=== PATIENT | female | born 1975 | race African-American/Black ===

== ENCOUNTER → 2016-11-18 10:21 | Outpatient (CLI) | payer BC | END | disposition home or self-care (01) | LOC: D.RAD 10:21 | DX: M54.42 Lumbago with sciatica, left side (principal) ==

== ENCOUNTER 2019-06-27 06:00 | Day surgery (SDC) | payer OTHER ==
[~2019-06-27] VITALS: Ht 162.6 cm; Wt 145.5 kg
[2019-06-27 06:39] LABS: MCH 30.1 pg (26.0-34.0); MCHC 33.3 g/dL (31.0-37.0); MCV 90.2 fL (80.0-100.0); MEAN PLATELET VOLUME 8.8 fL (7.4-10.4); RBC 3.99 10x6/uL (4.00-5.40); RDW 13.4 % (11.5-14.5); WBC 7.8 10x3/uL (4.8-10.8)
[2019-06-27 07:04] LABS: CALC OSMOLALITY 285 mosm/kg (275-300); CALCIUM 8.8 mg/dL (8.5-10.1); CARBON DIOXIDE 31.3 mmol/L (21.0-32.0); CHLORIDE - SERUM 103 mmol/L (98-107); CREATININE - SERUM 0.6 mg/dL (0.6-1.3); GLUCOSE 129 mg/dL (74-106); POTASSIUM - SERUM 3.3 mmol/L (3.5-5.1); SODIUM 143 mmol/L (136-145); UREA NITROGEN 9 mg/dL (7-18); eGFR NON AFRICAN AMERICAN > 90 mL/min (90-120)
[2019-06-27] MEDS ORDERED: HYDROCODON-ACE1 EA10 PO (07:07)
[2019-06-27] MEDS ORDERED: K-DUR20 MEQ PO (07:08)
[2019-06-27] MEDS ORDERED: CHOLESTYRAMINE (07:08)
[2019-06-27] MEDS ORDERED: MAG-OXIDE400 MG (07:08)
[2019-06-27] MEDS ORDERED: CHLORTHALIDONE25 MG PO (07:10)
[2019-06-27] MEDS ORDERED: TRINTELLIX20 MG PO (07:10)
[2019-06-27] MEDS ORDERED: GLUCOPHAGE500 MG PO (07:10)
[2019-06-27 07:31] VITALS: BP 128/75; Ht 162.6 cm; Wt 145.5 kg
--- NOTE | 2019-06-27 09:54 | OP ---
PATIENT NAME: FREEDOM ORTEGA MEDICAL RECORD: [id number] :79 LOCATION:[facility] ADMISSION DATE: SURGEON: JUNG RAMIREZ DO DATE OF OPERATION: 06/27/2019 PROCEDURE: EGD with biopsies. INDICATIONS FOR PROCEDURE: Upper abdominal pain, nausea and vomiting, generalized abdominal tenderness, diarrhea. SCOPE: Olympus video gastroscope. MEDICATIONS: Propofol 100 mg IV per anesthesia. ESTIMATED BLOOD LOSS: Minimal. COMPLICATIONS: None. FINDINGS: Informed consent was given. The patient was made comfortable with the above medication. After reaching an adequate level of sedation by slow IV push, the patient was placed in the left side. The endoscope was advanced under direct visualization through the mouth to the second portion of the duodenum with ease. The entire esophagus appeared normal. At the GE junction, there was evidence of LA class A reflux-induced esophagitis. The endoscope was advanced beyond the GE junction in the stomach and retroflexed to view the cardia, where a small sliding hiatal hernia was present. Throughout the entire stomach, there was erythema and granularity consistent with gastritis of moderate severity. Random forceps biopsies were taken from the antrum to submit for histopathology and to rule out the presence of H. pylori. The endoscope was advanced beyond the pylorus into the duodenum, which appeared normal to the second portion. Random cold forceps biopsies were taken to submit for histopathology in light of the patient's ongoing chronic diarrhea. The endoscope was withdrawn from the patient. The patient tolerated the procedure well and there were no complications. IMPRESSION: 1. LA class A reflux-induced esophagitis. 2. Small sliding hiatal hernia. 3. Gastritis. PLAN AND RECOMMENDATIONS: 1. Discharge home when recovery parameters are met. 2. Follow up biopsy specimen results. 3. GERD diet and reflux precautions. 4. Omeprazole 40 mg daily times 60 days followed by Pepcid 40 mg daily p.r.n. for reflux and gastritis changes. 5. Follow up in GI clinic in 4-6 weeks to make sure symptoms are improving. TRANSINT:[id number] Voice Confirmation ID: [id number] DOCUMENT ID: [id number] OPERATIVE REPORT [id number] FREEDOM ORTEGA JUNG RAMIREZ DO at 0954 CC: [id number] DICTATION DATE: 06/27/19827 OPERATING COST CLERK: 06/27/1901 DEP SDC 06/27/19 [facility] [address] [place] [address]
== END 2019-06-27 09:26 | disposition home or self-care (01) ==
LOC: D.OPS 06:00
PROVIDERS: Anesthesiology; ATTEND Internal Medicine Gastroenterology
DX: K21.0 Gastro-esophageal reflux disease with esophagitis (principal); K44.9 Diaphragmatic hernia without obstruction or gangrene; K29.70 Gastritis, unspecified, without bleeding

== ENCOUNTER 2019-09-03 10:32 | Day surgery (SDC) | payer OTHER ==
[~2019-09-03] VITALS: Ht 162.6 cm; Wt 145.5 kg
--- NOTE | ~2019-09-03 | OP ---
PATIENT NAME: FREEDOM ORTEGA MEDICAL RECORD: [id number] :79 LOCATION:D.[facility] ADMISSION DATE: SURGEON: JUNG RAMIREZ DO DATE OF OPERATION: 09/03/2019 PROCEDURE: Colonoscopy with biopsies. INDICATIONS FOR PROCEDURE: Diarrhea and generalized abdominal tenderness. SCOPE: OneTouch video pediatric colonoscope. MEDICATIONS: Propofol 580 mg IV per anesthesia. WITHDRAWAL TIME: 11 minutes. ESTIMATED BLOOD LOSS: Minimal. COMPLICATIONS: None. FINDINGS: Informed consent was given. The patient was made comfortable with the above medication. After reaching an adequate level of sedation by slow IV push, the patient was placed on her left side. A digital rectal examination was performed and was normal. The endoscope was then advanced under direct visualization through the rectum to the cecum, confirmed by the presence of the appendiceal orifice and ileocecal valve. The endoscope was slowly withdrawn and mucosa was carefully examined. The prep quality was fair. There were no polyps or masses visualized on today's examination. There were no diverticula seen. Retroflexion was performed in the rectum with visualization of grade I internal hemorrhoids. The patient had previously had an xTAG which was negative, so no stool studies were collected today. Random biopsies were taken with cold forceps to submit for histopathology and to rule out the presence of microscopic colitis. The endoscope was withdrawn from the patient. The patient tolerated the procedure well and there were no complications. IMPRESSION: 1. Grade I internal hemorrhoids without bleeding. 2. Otherwise, normal colonoscopy to cecum. PLAN AND RECOMMENDATIONS: 1. Discharge home when recovery parameters are met. 2. Follow up biopsy specimen results. 3. High fiber diet. 4. Continue current medications. 5. Restart cholestyramine 4 grams powder mixed with liquid twice daily for diarrhea. 6. Schedule dicyclomine 20 mg 3 times daily or as needed for diarrhea. 7. If this is not adequate to slow bowels down, Imodium daily to twice daily as needed. 8. Recall colonoscopy at age 52 for colon cancer screening. 9. Follow up in GI clinic in 2 months. TRANSINT:[id number] Voice Confirmation ID: [id number] DOCUMENT ID: [id number] OPERATIVE REPORT [id number] FREEDOM ORTEGAJUNG HAIR DO CC: [id number] DICTATION DATE: 09/03/19 1259 FILM LIBRARY CLERK: 09/03/192001 [facility] 09/03/19 [facility] [address] [facility] [place] [address]
[~2019-09-03 10:32] MED LIST: CHLORTHALIDONE25 MG PO; CHOLESTYRAMINE; GLUCOPHAGE500 MG PO; HYDROCODON-ACE1 EA10 PO; K-DUR20 MEQ PO; MAG-OXIDE400 MG; TRINTELLIX20 MG PO
[2019-09-03 11:13] LABS: HEMATOCRIT 38.2 % (36.0-48.0); HEMOGLOBIN 13.1 g/dL (12-16); MCH 30.8 pg (26.0-34.0); MCHC 34.3 g/dL (31.0-37.0); MCV 89.7 fL (80.0-100.0); MEAN PLATELET VOLUME 8.9 fL (7.4-10.4); RBC 4.26 10x6/uL (4.00-5.40); RDW 12.9 % (11.5-14.5); WBC 6.3 10x3/uL (4.8-10.8)
[2019-09-03 11:31] LABS: CALC OSMOLALITY 275 mosm/kg (275-300); CALCIUM 8.9 mg/dL (8.5-10.1); CARBON DIOXIDE 28.3 mmol/L (21.0-32.0); CHLORIDE - SERUM 100 mmol/L (98-107); CREATININE - SERUM 0.7 mg/dL (0.6-1.3); GLUCOSE 139 mg/dL (74-106); POTASSIUM - SERUM 3.1 mmol/L (3.5-5.1); SODIUM 138 mmol/L (136-145); UREA NITROGEN 8 mg/dL (7-18); eGFR NON AFRICAN AMERICAN > 90 mL/min (90-120)
[2019-09-03 11:59] VITALS: BP 121/77; Ht 162.6 cm; Wt 145.5 kg
--- NOTE | 2019-09-03 14:31 | NUR ---
1315 PT UP TO BR WITH ASSISTANCE. PT ABLE TO VOID AND ALSO PASS FLATUS. BACK TO BED WITH ASSISTANCE.
--- NOTE | 2019-09-03 14:34 | NUR ---
1352 IV DC'D. CATHETER TIP INTACT. PRESSURE HELD UNTIL BLEEDING CEASED. BANDAID APPLIED.
== END 2019-09-03 14:09 | disposition home or self-care (01) ==
LOC: D.OPS 10:32
PROVIDERS: Anesthesiology; ATTEND Internal Medicine Gastroenterology
DX: R19.7 Diarrhea, unspecified (principal); R10.817 Generalized abdominal tenderness; R11.2 Nausea with vomiting, unspecified